=== PATIENT | male | born 1945 | race Caucasian/White ===

== ENCOUNTER 2024-06-13 12:26 | Inpatient (IN) | payer MEDICARE, SELFPAY ==
--- NOTE | ~2024-06-13 | MR_ITS ---
MR brain/brain stem wo/w con Ordering provider: Abi Hernández MD History: 78 years Male with . cva . Comparison: CT head performed yesterday. Technique: MRI brain was performed with and without contrast. 17 mL of MultiHance was given IV. FINDINGS: BONES: Normal. CRANIOCERVICAL JUNCTION: normal. PITUITARY: Normal. MAJOR INTRACRANIAL VESSELS: Normal flow void. OPTIC NERVES AND CRANIAL NERVES VII AND VIII COMPLEXES: Grossly normal. BRAIN PARENCHYMA AND CSF SPACES: Mild nonspecific T2 white matter hyperintensities are seen in a hector ateral periventricular and deep white matter distribution which are likely related to chronic ischemi c small vessel disease. Mild diffuse cortical atrophy. Old lacunar infarct in the stefany and left bas al ganglia. The brainstem and cerebellum are normal. No acute or chronic intracranial hemorrhage. No extra axial fluid collections. Diffusion restriction with acute infarct is seen in the left cerebella r hemisphere. Acute infarct also seen in the left side of the medulla. No midline shift or mass effec t. No abnormal contrast enhancement. PARANASAL SINUSES: Normal. MASTOIDS: Minimal bilateral mastoid air cells effusion. SUPERFICIAL/SURROUNDING SOFT TISSUES: Normal. 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 Infarct in the left side of the medulla oblongata.. No enhancing lesions. Dr. Simons was notified with the result of the patient at 11:12 AM on June 14, 2024 Reviewed, dictated and finalized at location A. IMPRESSION: Acute large infarct in the left cerebellar hemisphere involving the PICA territ ory. Infarct in the left side of the medulla oblongata.. No enhancing lesions. Dr. Simons was notified with the result of the patient at 11:12 AM on May
--- NOTE | ~2024-06-13 | XR_ITS ---
EXAMINATION: XR barium swallow modified DATE: 06/14/2024 14:10 INDICATION: Cerebral vascular accident. TECHNIQUE: The patient was given barium-containing material of multiple consistencies to swallow by t chon speech pathologist while I performed fluoroscopy. Fluoroscopy exposure time was 2.5 minutes. The n umber of fluoroscopy images saved to the PACS was 1. Dose-area product was 1.621 Gy-cm^2. FINDINGS: There is reduced laryngeal elevation, reduced tongue base retraction, vallecular residue, pyriform si nus residue, and laryngeal penetration. IMPRESSION: 1. Laryngeal penetration. 2. Please refer to the speech therapy report for recommendations. Reviewed, dictated and finalized at location A.
--- NOTE | ~2024-06-13 | XR_ITS ---
XR chest 1V Ordering provider: Abi Hernández MD History: 78 years Male with . Dizziness WEAKNESS . Comparison: None. FINDINGS: MEDIASTINUM: The cardiac silhouette is slightly Enlarged. congestive manpreet. LUNGS: No effusion or pneumothorax. Infiltrate in the left lower lobe with prominent markings in the right lower lobe are noted which may indicate pneumonia. Pulmonary edema is less likely although darcie ot be excluded. OTHER: No free air under the diaphragm. IMPRESSION: Bibasilar basal pneumonia. Underlying pulmonary edema is not excluded. Reviewed, dictated and finalized at location A.
--- NOTE | ~2024-06-13 | CT_ITS ---
EXAMINATION: CT cervical spine wo con DATE: 06/13/2024 13:16 INDICATION: Neck injury. Fall. TECHNIQUE: Computed tomography (CT) of the cervical spine was performed without intravenous contrast. Automated exposure control and iterative reconstruction technique were employed. The dose-length pro duct was 605.33 mGy-cm. COMPARISON: None FINDINGS: Alignment is normal. There is mild chronic anterior wedging of T1-T3 vertebral bodies. Ther e is mildly decreased disc height at C2-C3 and severely decreased disc height at C3-C4. There is inte rbody fusion at C4-C5 and C5-C6. The following disc levels are specifically discussed: C2-C3: There is moderate right and mild left uncovertebral joint osteoarthritis. There is severe bila teral facet joint osteoarthritis. There is mild bilateral neural foraminal stenosis. There is no cent ral canal stenosis. C3-C4: There is severe bilateral uncovertebral joint osteoarthritis. There is severe right and modera te left facet joint osteoarthritis. There is mild right and moderate left neural foraminal stenosis. There is mild central canal stenosis. C4-C5: There is severe right and moderate left uncovertebral joint hypertrophy. There is mild bilater al facet joint osteoarthritis. There is moderate right and mild left neural foraminal stenosis. There is mild central canal stenosis. C5-C6: There is severe bilateral uncovertebral joint hypertrophy. There is mild left facet joint oste oarthritis. There is ankylosis of right facet joint with mild hypertrophy. There is mild bilateral ne ural foraminal stenosis. There is mild central canal stenosis. C6-C7: There is mild right uncovertebral joint osteoarthritis. There is severe bilateral facet joint osteoarthritis. There is no neural foraminal stenosis. There is no central canal stenosis. C7-T1: There is mild left uncovertebral joint osteoarthritis. There is severe right and mild left fac et joint osteoarthritis. There is mild bilateral neural foraminal stenosis. There is no central canal stenosis. IMPRESSION: 1. No fracture. 2. Severe cervical spondylosis. Reviewed, dictated and finalized at location A.
--- NOTE | ~2024-06-13 | CT_ITS ---
EXAMINATION: CTA brain carotid DATE: 06/13/2024 14:39 INDICATION: Dizziness. TECHNIQUE: Computed tomographic angiography (CTA) of the head was performed with 100 mL Omnipaque-350 intravenous contrast. CTA of the neck was performed with intravenous contrast. Automated exposure co ntrol and iterative reconstruction technique were employed. The dose-length product was 1019.62 mGy-c m. Maximum intensity projection and volume rendered 3D-reconstructions were created by the technologi st on a separate workstation. COMPARISON: Head CT 06/13/2024 FINDINGS: HEAD CTA: There is an infarct in left cerebellum. There are old infarcts in the bilateral basal gangl ia. There are scattered areas of low attenuation in the cerebral white matter. There is an old infarc t in the stefany. There is no intracranial hemorrhage or abnormal mass lesion. The ventricles are normal in size. The paranasal sinuses are clear. The orbits are normal. The mastoid air cells are normal. T he vertebral arteries are codominant. There is no significant stenosis of basilar artery or the poste rior cerebral arteries. There is no significant stenosis of the intracranial internal carotid arterie s or anterior or middle cerebral arteries. Anterior communicating artery is normal. The posterior com municating arteries are normal. There is no aneurysm. NECK CTA: There is mild scarring at the lung apices. There are no pathologically enlarged lymph nodes . There is no significant stenosis of the vertebral arteries. There is plaque in the proximal interna l carotid arteries. There is 26% stenosis of the proximal right internal carotid artery relative to n ormal distal artery lumen diameter (NASCET criteria). There is 7% stenosis of the proximal left inter nal carotid artery relative to normal distal artery lumen diameter. There is severe cervical spondylo sis. IMPRESSION: 1. Infarct in left cerebellum, likely acute or subacute. 2. Old infarcts in the bilateral basal ganglia and stefany. 3. Extensive nonspecific cerebral white matter disease, which likely represents chronic small vessel ischemic disease. 4. No aneurysm or significant intracranial arterial stenosis. 5. 26% stenosis of the proximal right internal carotid artery relative to normal distal artery lumen diameter (NASCET criteria). 6. 7% stenosis of the proximal left internal carotid artery relative to normal distal artery lumen di ameter. Reviewed, dictated and finalized at location A. IMPRESSION: 1. Infarct in left cerebellum, likely acute or subacute. 2. Old infarcts in the bilateral basal ganglia and stefany. 3. Extensive nonspecific cerebral white matter disease, which likely represents chronic small vessel ischemic disease. 4. No aneurysm or significant intracranial arterial stenosis. 5. 26% stenosis of the proximal right internal carotid artery relative to ector l distal artery lumen diameter (NASCET criteria). 6. 7% stenosis of the proximal left internal carotid artery relative to normal distal artery lumen diameter.
--- NOTE | ~2024-06-13 | CT_ITS ---
CT brain wo con Ordering provider: Abi Hernández MD History: 78 years Male with . Dizziness . Comparison: None. Technique: CT of the head without contrast. FINDINGS: BRAIN PARENCHYMA AND CSF SPACES: Hypodensity seen in the left cerebellar hemisphere suggestive of acu te infarct. Further evaluation with MRI is advised. Hypodensity in the left internal capsule anterior ly seen which may be acute or chronic lacunar infarct. Mild leukoaraiosis and diffuse cortical atroph y. Mild atheromatous disease. No midline shift, mass effect or hemorrhage. The brain parenchyma and CSF spaces are otherwise normal. VISUALIZED PARANASAL SINUSES: Well aerated. MASTOIDS: Well aerated. BONES: The bones appear intact. SOFT TISSUES: Visualized nasopharynx is normal. Superficial soft tissues are normal. IMPRESSION: Hypodensity in the left cerebellar hemisphere most likely an acute infarct. MRI for confirmation is a dvised. Hypodensity in the anterior limb of the left internal capsule which may be acute or chronic infarct Brain atrophy with deep white matter ischemic changes , Physician: Abi Hernández MD Was notified with the result of patient at the time dictation 1:26 PM on May 2024. Reviewed, dictated and finalized at location A. IMPRESSION: Hypodensity in the left cerebellar hemisphere most likely an acute infarct. MRI for confirmation is advised. Hypodensity in the anterior limb of the left internal capsule which may be acut e or chronic infarct Brain atrophy with deep white matter ischemic changes , Physician: Abi Hernández MD Was notified with the result of patient at the time dictation 1:26 PM on May 2024.
[2024-06-13 12:32] VITALS: BP 168/90; PULSE 84; RESP 16; TEMP 36.3; O2SAT 95
--- NOTE | 2024-06-13 12:51 | ECG_ITS ---
Test Date: 2024-06-13 23:27:37 Measurements Intervals [place] Rate: 69 P: -18 SC: 281 QRS: 24 QRSD: 104 T: 44 QT: 414 QTc: 445 Interpretive Statements SINUS RHYTHM WITH FIRST DEGREE AV BLOCK INFERIOR MYOCARDIAL INFARCTION , PROBABLY OLD [40+ ms Q WAVE AND/OR ST/T ABNORMALITY IN II/aVF] Compared to ECG 06/13/2024 12:55:18 First degree AV block now present Atrial fibrillation no longer present Electronically Signed On 06-14-2024 15:56:42 CDT by Alfie Mcgregor M.D.
--- NOTE | 2024-06-13 12:51 | ED.DIZZY ---
HPI - Dizziness General Chief Complaint: Dizziness Stated Complaint: dizzy, possible new onset of afib Time Seen by Provider: 06/13/24 12:50 Source: patient History of Present Illness HPI Narrative: 78 years old white male came from home by ambulance with his who is telling me that patient had a fall out of his bed and found him lying down on the floor. Last time was seen by his was 20 minutes prior to that. Patient denies any pain. is telling me that he been getting weaker and weaker mainly over the last 48 hours. History of dementia, poor historian, not sure if he hit his head or not but currently denies any pain Related Data Home Medications Medication Instructions Recorded Confirmed atorvastatin 20 mg tablet mg 06/13/24 insulin glargine U-300 conc 300 unit subcut 06/13/24 unit/mL (1.5 mL) subcutaneous pen (Toujeo SoloStar U-300 Insulin) linagliptin 2.5 mg-metformin 1,000 tablet 06/13/24 mg tablet (Jentadueto) Allergies Allergy/AdvReac Type Severity Reaction Status Date / Time No Known Allergies Allergy Verified 06/13/24 12:45 Review of Systems Review of Systems: ROS unobtainable: Yes unobtainable due to medical condition Exam Narrative: General appearance: Well-developed, well-nourished Skin: Normal color Head: Normocephalic, nontraumatic Eyes: Clear conjunctiva ENT: Oropharynx normal, ears normal, nose normal Neck: Supple, nontender Chest and respiratory: Airway patent, no respiratory distress, no accessory muscle use Heart: Regular rate/rhythm Abdomen: Soft, nontender, no organomegaly, quiet bowel sounds Vascular: Normal peripheral pulses, normal capillary refill. Musculoskeletal: Normal range of motion, nontender back Neurologic: Alert and oriented to his name and the year only Course Consultations Consultation #1: dr montoya Date: 06/13/24 Time: 16:05 Vital Signs Vital signs: Vital Signs Temperature 36.3 C L 06/13/24 12:32 Pulse Rate 84 06/13/24 12:32 Respiratory Rate 16 06/13/24 12:32 Blood Pressure 168/90 H 06/13/24 12:32 Pulse Oximetry 95 06/13/24 12:32 Oxygen Delivery Room Air 06/13/24 12:32 Temperature 36.7 C 06/13/24 14:01 Pulse Rate 85 06/13/24 14:01 Respiratory Rate 16 06/13/24 14:01 Blood Pressure 145/89 H 06/13/24 14:01 Pulse Oximetry 97 06/13/24 14:01 Oxygen Delivery Room Air 06/13/24 12:32 MDM - Dizziness MDM Narrative Medical decision making narrative: Patient came with general weakness for the last 48 hours Vital signs on arrival showed blood pressure 168/90. Patient did not take his medication at home today. Physical examination showed comfortable patient, awake, oriented to his name and the name of the president only Differential diagnosis include electrolyte imbalance, dehydration, pneumonia, urinary tract infection, closed head injury Blood workup today showed WBC of 12.8 with left shift,glucose of 255, lactic acid of 2.2, total bilirubin of 1.9 Chest x-ray showed basal pneumonia bilaterally CT head without contrast showed possible infarction CTA head and neck showed acute versus subacute infarction. Dr. Montoya was consulted, requested to give Plavix 300 mg and aspirin 325 mg p.o. right now and to admit patient for MRI. Admit to hospitalist Differential Diagnosis Differential diagnosis: Likely other (As above) Medical Records Attestation: I reviewed the patient's medical records. Lab Data Attestation: I reviewed the patient's lab results. 06/13/24 13:37 06/13/24 13:37 Labs: Lab Results 06/13/24 06/13/24 Range/Units 13:37 14:19 WBC 12.3 H (4.5-10.0) K/mm3 RBC 5.03 (4.6-
[2024-06-13 13:31] VITALS: BP 160/93; PULSE 89; RESP 16; TEMP 36.8; O2SAT 96
[2024-06-13 13:50] LABS: Basophils Percent Auto 0.2 % (0.2-1.2); Hematocrit 47.6 % (42.0-52.0); Hemoglobin 15.5 g/dL (14.0-18.0); Immature Granulocyte Absolute 0.06 K/mm3 (0.00-0.031); Immature Granulocyte Percent A 0.5 % (0-0.5); Lymphocytes Absolute Auto 0.76 K/mm3 (0.9-3.2); Lymphocytes Percent Auto 6.2 % (18.3-44.2); Mean Corpuscular HGB Conc 32.6 g/dl (32-36); Mean Corpuscular Hemoglobin 30.8 pg (26-34); Mean Corpuscular Volume 94.6 fl (80-100); Mean Platelet Volume 9.8 fl (7.4-10.4); Monocytes Absolute Auto 0.3 K/mm3 (0.1-0.6); Monocytes Percent Auto 2.3 % (2.6-8.5); Neutrophils Absolute Auto 11.2 K/mm3 (1.3-6.7); Neutrophils Percent Auto 90.8 % (45.5-73.1); Platelet Count Result 243 k/mm3 (150-375); Red Blood Count 5.03 M/mm3 (4.6-6.20); Red Cell Distribution Width 12.4 % (11.5-14.5); White Blood Count 12.3 K/mm3 (4.5-10.0)
[2024-06-13 14:00] LABS: Prothrombin Time 13.5 Seconds (11.1-14.7)
[2024-06-13 14:01] VITALS: BP 145/89; PULSE 85; RESP 16; TEMP 36.7; O2SAT 97
[2024-06-13 14:01] LABS: Partial Thromboplastin Time 23.4 Seconds (22.3-36.8)
[2024-06-13 14:09] LABS: Alanine Aminotransferase 16 U/L (6-50); Albumin Level 4.4 g/dL (3.5-5.1); Alkaline Phosphatase 89 U/L (38-126); Anion Gap 18 mmol/L (4-12); Aspartate Amino Transferase 18 U/L (17-59); Bilirubin,Total 1.9 mg/dL (0.2-1.3); Blood Urea Nitrogen 14 mg/dL (9-20); Calcium 8.9 mg/dL (8.4-10.2); Carbon Dioxide 21 mmol/L (22-30); Chloride 99 mmol/L (98-107); Estimated CRCL calculation 78 ml/min; Estimated Glomerular Filt Rate > 60; Glucose 255 mg/dL (65-110); Potassium 4.1 mmol/L (3.4-5.0); Sodium 138 mmol/L (137-145)
[2024-06-13 14:20] LABS: Troponin I < 0.012 ng/mL (0.000-0.034)
[2024-06-13 14:35] LABS: Add Urine Microscopic? YES; Appearance Urine Clear (Clear); Bacteria Urine None Seen /hpf; Bilirubin Urine Negative (Negative); Blood Urine Negative (Negative); Color Urine Yellow (Yellow); Glucose Urine UA 3+ mg/dL (Negative); Ketones Urine 1+ mg/dL (Negative); Leukocyte Esterase Ur Negative LEU/UL (Negative); Nitrate Urine Negative (Negative); Non Pathogenic Casts 0-2; Protein Urine Trace mg/dL (Negative); RBC Urine 0-2 /hpf (0-2); Specific Grav Ur 1.036 (1.001-1.035); Squamous Epithelial Cell Urine None Seen /hpf (Few); WBC Urine 0-5 /hpf (0-3); pH Urine 6.5 (5.0-9.0)
[2024-06-13 15:57] LABS: Lactic Acid Reflex 2.2 mmol/L (0.7-2.0)
[2024-06-13 16:01] LABS: CRP < 0.5 mg/dL (<1.0)
[2024-06-13] MEDS: CLOPIDOGREL BISULFATE 300 MG TABLET PO (16:05)
[2024-06-13] MEDS: ASPIRIN 325 MG TABLET PO (16:05)
[2024-06-13 16:06] VITALS: BP 166/71; PULSE 68; RESP 20; O2SAT 98
[2024-06-13] MEDS: AZITHROMYCIN 500 MG/NS 250 ML 500 MG/250 ML BAG 250 MG IVPB (16:40)
[2024-06-13] MEDS: ONDANSETRON INJ 4 MG/2 ML VIAL IV PUSH (16:43)
--- NOTE | 2024-06-13 16:45 | ADMGEN ---
This patient, Robson Abbott, was admitted to [facility] Surg Room 322-01. Patient/family oriented to hospital policies and general routines including ID bracelet, bed and alarms, visiting hours, pain management, procedures, bathroom and other care routines, personal items, smoking policy, room service/diet, and visiting hours. Information on how to activate the Rapid Response Team has been discussed. Patient/Family are encouraged to report perceived risks to care and to ask questions if they do not understand what they are told or what they should do.
--- NOTE | 2024-06-13 17:25 | PM.IMHP ---
H&P: HPI History of Present Illness Date/Time: 06/13/24 17:25 Chief Complaint: Weakness and dizziness. Narrative: This is a pleasant 78-year-old male with type 2 diabetes mellitus, hyperlipidemia and gastroesophageal reflux disease who presented to the emergency department via EMS from home for evaluation of weakness and dizziness. The patient and his provides the following history. Over the last couple of weeks the patient has not seemed like himself. states he has been sleeping more than usual and has been irritable which is not typical. The last couple of days he has seemed to be weak without reports of focal deficits. His gait seems to be unsteady and he has been shuffling. He has been coughing and at times seems to be choking on food. thinks he has been mildly confused as well. This morning he fell to the ground while getting out of bed in the fall was unwitnessed. He was on the floor for about 20 minutes before his found him. He is not able to tell me why or how he fell. He denies head trauma, loss of consciousness, and injury in the fall. The patient tells me that he has been getting dizzy, especially when he opens his eyes ?it looks like everything is moving.? He feels a bit dizzy and nauseated with his eyes open. He denies diplopia, facial droop, difficulty speaking and swallowing, focal weakness, and paresthesias. He also denies chest pain, palpitations, sensations of racing heart, cough, and shortness of breath. He also denies fever, chills, and sweats. In the ED: He was afebrile on arrival with blood pressures in the 160s over 90s systolic. CTA of the head and neck showed an acute or subacute infarct in the left cerebellum as well as old infarcts and extensive nonspecific cerebral white matter disease without aneurysm or significant intracranial or carotid arterial stenosis. ED physician spoke with the on-call neurologist who indicated that the patient would not be a candidate for tPA and recommended starting the patient on aspirin and clopidogrel with admission for MRI and consult. Review of Systems Review of Systems: 12 systems were reviewed and are negative except for as per HPI. [facility] Past Medical History Medical History Gastroesophageal reflux disease Hyperlipidemia Type 2 diabetes mellitus Social History Social History (Updated 06/13/24 @ 21:06 by Ksenia Maza PA-C) Social History: Surrogate medical decision maker: Mindy Abbott, spouse. Code status: Full code. Smoking status: Never smoker Alcohol intake: never Substance use: never Do You Feel Safe in your Home?: Yes Lack of Transportation: No Lack of Food: Never True Current Housing: I Have Housing Concerned About Future Housing: No Difficulty Paying Gas/Electric Bills: No Difficulty Paying for Meds: No Currently Unemployed: No Education: Decline to Answer Difficulty w/ Childcare or Family Care: No Additional living arrangements comments: Lives with in [place]. 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 Spiritual care concerns: No Meds Home Medications and Allergies Home Medications Medication Instructions Recorded Confirmed Type atorvastatin 20 mg tablet 20 mg PO DAILY 06/13/24 06/13/24 History dapagliflozin propanediol 10 mg 10 mg PO DAILY 06/13/24 06/13/24 History tablet (Farxiga) insulin glargine U-300 conc 300 20 unit subcut DAILY 06/13/24 06/13/24 History unit/mL (1.5 mL) subcutaneous pen (Toujeo SoloStar U-300 Insulin) linagliptin 2.5 mg-metformin 1,000 1 tablet PO DIRECTED 06/13/24 06/13/24 History mg tablet (Jentadueto) Allergies Allergy/AdvReac Type Severity Reaction Status Date / Time No Known Allergies Allergy Verified 06/13/24 12:45 Vital Signs Vital Signs - 24 hr 06/13/24 12:32 06/13/24 13:31 06/13/24 14:01 Temperature 97.4 F L 98.2 F 98.0 F Pulse Rate 84 8
[2024-06-13 18:46] LABS: Reflex Lactic Acid Yes or No Add Lactic
[2024-06-13 19:19] LABS: Lactic Acid 2.1 mmol/L (0.7-2.0)
[2024-06-13 20:00] VITALS: PULSE 68; PULSE 96; RESP 20; O2SAT 98
[2024-06-13 20:38] LABS: Glucose Point of Care 210 mg/dl (65-105)
[2024-06-13 20:48] VITALS: BP 142/77; PULSE 80; RESP 18; TEMP 36.4; O2SAT 99
[2024-06-13 22:11] LABS: Hemoglobin A1C 10.9 % (<5.7)
--- NOTE | 2024-06-13 23:23 | ECG_ITS ---
Test Date: 2024-06-13 12:55:18 Measurements Intervals [place] Rate: 87 P: 0 WA: 0 QRS: 3 QRSD: 84 T: 49 QT: 369 QTc: 444 Interpretive Statements ATRIAL FIBRILLATION POSSIBLE ANTERIOR MYOCARDIAL INFARCTION , PROBABLY OLD [30 ms Q WAVE IN V3/V4, OR R < 0.2 mV IN V4] INFERIOR MYOCARDIAL INFARCTION, OLD ABNORMAL ECG No previous ECG available for comparison Electronically Signed On 06-14-2024 12:37:11 CDT by Carter Gustafson M.D.
[2024-06-14] VITALS (10 sets, daily range): BP systolic 150–185; BP diastolic 74–89; PULSE 60–73; RESP 16–18; TEMP 36.2–37.2; O2SAT 98–100; BMI 22.9
[2024-06-14 06:34] LABS: Hematocrit 47.9 % (42.0-52.0); Hemoglobin 15.7 g/dL (14.0-18.0); Mean Corpuscular HGB Conc 32.8 g/dl (32-36); Mean Corpuscular Hemoglobin 30.8 pg (26-34); Mean Corpuscular Volume 94.1 fl (80-100); Platelet Count Result 248 k/mm3 (150-375); Red Blood Count 5.09 M/mm3 (4.6-6.20); Red Cell Distribution Width 12.5 % (11.5-14.5); White Blood Count 12.6 K/mm3 (4.5-10.0)
[2024-06-14 06:41] LABS: Anion Gap 19 mmol/L (4-12); Blood Urea Nitrogen 16 mg/dL (9-20); Calcium 8.9 mg/dL (8.4-10.2); Carbon Dioxide 17 mmol/L (22-30); Chloride 101 mmol/L (98-107); Cholesterol 140 mg/dL (0-200); Estimated CRCL calculation 78 ml/min; Estimated Glomerular Filt Rate > 60; Glucose 163 mg/dL (65-110); HDL Direct 58 mg/dL; Magnesium 1.9 mg/dL (1.6-2.3); Potassium 4.1 mmol/L (3.4-5.0); Sodium 137 mmol/L (137-145); Triglycerides 78 mg/dL (<150)
[2024-06-14 06:52] LABS: LDL Cholesterol Direct 59 mg/dL
[2024-06-14 08:06] LABS: Glucose Point of Care 155 mg/dl (65-105)
[2024-06-14] MEDS: ASPIRIN 81 MG CHEWABLE TABLET PO (09:36)
[2024-06-14] MEDS: INSULIN GLARGINE (*BKC) 100 UNITS/ML 20 UNITS SUB-Q (09:36)
[2024-06-14] MEDS: EMPAGLIFLOZIN 25 MG TABLET BY MOUTH (09:36)
[2024-06-14] MEDS: CLOPIDOGREL BISULFATE 75 MG TABLET PO (09:36)
[2024-06-14] MEDS: ATORVASTATIN 20 MG TABLET PO (09:36)
--- NOTE | 2024-06-14 10:42 | P.PNIM_ITS ---
Progress Note: A&P Assessment and Plan (1) Cerebrovascular accident: Code(s): I63.9 - Cerebral infarction, unspecified Status: Acute Assessment and Plan: 06/14/24: * Reporting weakness and dizziness status post fall * Head CT showing hypodensity in the left cerebellar hemisphere most likely an acute infarct, hypodensity in the anterior limb of the left internal capsule which may be acute or chronic infarct, brain atrophy with deep white matter ischemic changes * Cervical spine CT was negative for fracture, showed severe cervical spondylosis * Head/neck CTA showed infarct in left cerebellum, likely acute or subacute, old infarcts in the bilateral basal ganglia and stefany, extensive nonspecific cerebral white matter disease representing chronic small-vessel ischemic disease, no aneurysm or significant intracranial arterial stenosis, 26% stenosis of the proximal right internal carotid artery, 7% stenosis of the proximal left internal carotid artery * EKG showing AFib with a rate of 87, QTC 444 * Brain MRI obtained and is pending * Patient was given a loading dose of Plavix and aspirin while in the ED. * Continue aspirin, atorvastatin, Plavix * Continue neuro checks * Continue fall precautions * PT and OT ordered * Case management following for possible rehab needs * Speech evaluation with Barium swallow study ordered for today * Neurology consulted (2) Pneumonia: Code(s): J18.9 - Pneumonia, unspecified organism Status: Acute Assessment and Plan: 06/14/24: * Chest x-ray showing bibasilar basal pneumonia * Likely community-acquired pneumonia * Continue azithromycin and Rocephin * Urine strep, urine Legionella, mycoplasma ordered * Will check respiratory panel (3) Elevated blood pressure reading: Code(s): R03.0 - Elevated blood-pressure reading, without diagnosis of hypertension Status: Acute Assessment and Plan: 06/14/24: * Blood pressure ranging 145/89-166/71 * Allow for permissive hypertension * Neurology consulted * Patient is not currently on any home medication for blood pressure (4) Type 2 diabetes mellitus: Code(s): E11.9 - Type 2 diabetes mellitus without complications Status: Chronic Assessment and Plan: 06/14/24: * Blood sugars ranging 155-163 * Hgb A1C 10.9 * Accu checks AC/HS * Moderate SSI ordered * Continue Lantus 20 units subQ daily * Hold Farxiga and Jentadueto * hypoglycemic protocol in place * Diabetic diet ordered (5) Hyperlipidemia: Code(s): E78.5 - Hyperlipidemia, unspecified Status: Chronic Assessment and Plan: 06/14/24: * Continue aspirin, Plavix, and atorvastatin Time Spent With Patient Time with patient: 25 - 35 minutes Subjective Date/time seen: 06/14/24 10:42 Interval history: Interval history: This is an 78-year-old male who presented to the hospital on 06/13/2024 for evaluation after a ground level fall due to weakness and dizziness. Workup in the hospital includes a head CT which showed hypodensity in the left cerebellar hemisphere most likely an acute infarct, hypodensity in the anterior limb of the left internal capsule which may be acute or chronic infarct, brain atrophy with deep white matter ischemic changes. Cervical spine CT was negative for fracture, severe cervical spondylosis. Chest x-ray showing bibasilar basal pneumonia. Head/neck CTA showed infarct in left cerebellum likely acute or subacute, old infarcts in the bilateral basal ganglia and stefany, extensive nonspecific cerebral white matter disease representing chronic small-vessel ischemic
--- NOTE | 2024-06-14 10:42 | PM.IMPN ---
Progress Note: A&P Assessment and Plan (1) Cerebrovascular accident: Code(s): I63.9 - Cerebral infarction, unspecified Status: Acute Assessment and Plan: 06/14/24: Reporting weakness and dizziness status post fall Head CT showing hypodensity in the left cerebellar hemisphere most likely an acute infarct, hypodensity in the anterior limb of the left internal capsule which may be acute or chronic infarct, brain atrophy with deep white matter ischemic changes Cervical spine CT was negative for fracture, showed severe cervical spondylosis Head/neck CTA showed infarct in left cerebellum, likely acute or subacute, old infarcts in the bilateral basal ganglia and stefany, extensive nonspecific cerebral white matter disease representing chronic small-vessel ischemic disease, no aneurysm or significant intracranial arterial stenosis, 26% stenosis of the proximal right internal carotid artery, 7% stenosis of the proximal left internal carotid artery EKG showing AFib with a rate of 87, QTC 444 Brain MRI obtained and is pending Patient was given a loading dose of Plavix and aspirin while in the ED. Continue aspirin, atorvastatin, Plavix Continue neuro checks Continue fall precautions PT and OT ordered Case management following for possible rehab needs Speech evaluation with Barium swallow study ordered for today Neurology consulted (2) Pneumonia: Code(s): J18.9 - Pneumonia, unspecified organism Status: Acute Assessment and Plan: 06/14/24: Chest x-ray showing bibasilar basal pneumonia Likely community-acquired pneumonia Continue azithromycin and Rocephin Urine strep, urine Legionella, mycoplasma ordered Will check respiratory panel (3) Elevated blood pressure reading: Code(s): R03.0 - Elevated blood-pressure reading, without diagnosis of hypertension Status: Acute Assessment and Plan: 06/14/24: Blood pressure ranging 145/89-166/71 Allow for permissive hypertension Neurology consulted Patient is not currently on any home medication for blood pressure (4) Type 2 diabetes mellitus: Code(s): E11.9 - Type 2 diabetes mellitus without complications Status: Chronic Assessment and Plan: 06/14/24: Blood sugars ranging 155-163 Hgb A1C 10.9 Accu checks AC/HS Moderate SSI ordered Continue Lantus 20 units subQ daily Hold Farxiga and Jentadueto hypoglycemic protocol in place Diabetic diet ordered (5) Hyperlipidemia: Code(s): E78.5 - Hyperlipidemia, unspecified Status: Chronic Assessment and Plan: 8/21/24: Continue aspirin, Plavix, and atorvastatin Time Spent With Patient Time with patient: 25 - 35 minutes Subjective Date/time seen: 06/14/24 10:42 Interval history: Interval history: This is an 78-year-old male who presented to the hospital on 06/13/2024 for evaluation after a ground level fall due to weakness and dizziness. Workup in the hospital includes a head CT which showed hypodensity in the left cerebellar hemisphere most likely an acute infarct, hypodensity in the anterior limb of the left internal capsule which may be acute or chronic infarct, brain atrophy with deep white matter ischemic changes. Cervical spine CT was negative for fracture, severe cervical spondylosis. Chest x-ray showing bibasilar basal pneumonia. Head/neck CTA showed infarct in left cerebellum likely acute or subacute, old infarcts in the bilateral basal ganglia and stefany, extensive nonspecific cerebral white matter disease representing chronic small-vessel ischemic disease, no aneurysm or significant intracranial arterial stenosis, 26% stenosis of the proximal right internal carotid artery, 7% stenosis of the proximal left internal carotid artery. Initial labs shown a white blood cell count of 12.3, bicarb 21, hemoglobin A1c 10.9, lactic acid 2.2> 2.1, total bili 1.9, troponin negative, lipid panel negative, TSH 1.59. UA was obtained and showed a urine specific
[2024-06-14 11:41] LABS: Glucose Point of Care 231 mg/dl (65-105)
--- NOTE | 2024-06-14 12:20 | WPDNEURCNPN ---
Assessment and Plan Assessment and plan (1) Elevated blood pressure reading: Code(s): R03.0 - Elevated blood-pressure reading, without diagnosis of hypertension Status: Acute (2) Cerebrovascular accident: Code(s): I63.9 - Cerebral infarction, unspecified Status: Acute (3) Type 2 diabetes mellitus: Code(s): E11.9 - Type 2 diabetes mellitus without complications Status: Chronic Plan 1. Acute infarct in left cerebellar hemisphere involving the PICA territory in addition to the infarct and left side of the medulla oblongata also. Head and neck CTA documented as mentioned above 2. Will need the echocardiogram with bubble study and then rehab evaluation in the meantime continuation of the aspirin and Plavix. Consult date: 06/14/24 HPI: Robson Abbott is a 78 year old male admitted to the hospital through the emergency room where he was brought from home by ambulance and with the information that he had fallen out of his bed and was found lying down on the floor with the last time being seen by his was about 20minutes prior to this incident. Patient was not complaining of any specific pain patient's complained that he was getting weaker and weaker and also he does have ongoing history of dementia. His medications included atorvastatin 20mg daily linagliptin 2.5mg with metformin 1000mg tablet daily and insulin injections subcu on initial evaluation his blood pressure 168/90 routine vital signs were normal chest x-ray revealed basal pneumonia, CTA was abnormal with the infarction CBC was normal BMP with blood sugar of 255 and UA negative cervical spine CT scan with severe cervical spondylosis, initial CT scan of the head with hypodensity in the left cerebellar hemisphere and in the anterior limb of the left internal capsule with brain atrophy, head neck CTA with infarct in left cerebellum with old infarct in bilateral basal ganglia and stefany and extensive nonspecific white matter changes but no aneurysm or significant intracranial arterial stenosis, 26% stenosis of proximal right internal carotid artery, and brain MRI confirmed the acute large infarct in left cerebellar hemisphere in the distribution of the PICA involving the infarct in left side of the medulla oblongata also be PMFSH Past Medical History Medical History Gastroesophageal reflux disease Hyperlipidemia Type 2 diabetes mellitus Social History Social History Social History: Surrogate medical decision maker: Mindy Hickey, spouse. Code status: Full code. Smoking status: Never smoker Alcohol intake: never Substance use: never Do You Feel Safe in your Home?: Yes Lack of Transportation: No Lack of Food: Never True Current Housing: I Have Housing Concerned About Future Housing: No Difficulty Paying Gas/Electric Bills: No Difficulty Paying for Meds: No Currently Unemployed: No Education: Decline to Answer Difficulty w/ Childcare or Family Care: No Additional living arrangements comments: Lives with in [place]. 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 Spiritual care concerns: No Meds Home Medications and Allergies Home Medications Medication Instructions Recorded Confirmed Type atorvastatin 20 mg tablet 20 mg PO DAILY 06/13/24 06/13/24 History dapagliflozin propanediol 10 mg 10 mg PO DAILY 06/13/24 06/13/24 History tablet (Farxiga) insulin glargine U-300 conc 300 20 unit subcut DAILY 06/13/24 06/13/24 History unit/mL (1.5 mL) subcutaneous pen (Toujeo SoloStar U-300 Insulin) linagliptin 2.5 mg-metformin 1,000 1 tablet PO DIRECTED 06/13/24 06/13/24 History mg tablet (Jentadueto) Allergies Allergy/AdvReac Type Severity Reaction Status Date / Time No Known Allergies Allergy Verified 06/13/24 12:45 Vital Signs Vital Signs - 24 hr 05/26
[2024-06-14] MEDS: INSULIN ASPART (*BKC) 100 UNITS/ML SUB-Q (13:21)
[2024-06-14] MEDS: AZITHROMYCIN 500 MG/NS 250 ML 500 MG/250 ML BAG 250 MG IVPB (13:23)
[2024-06-14 14:03] LABS: Influenza A QL RT-PCR Negative (Negative); Influenza B QL RT-PCR Negative (Negative); RSV RNA, RT-PCR Negative (Negative); SARS-CoV-2 RNA PCR Negative (Negative)
--- NOTE | 2024-06-14 14:32 | PCSTNOTE ---
Please refer to the Modified Barium Swallow Evaluation in the EMR. Patient was seen for a MBS at the request of his physician. He was admitted 06/13 with CVA, pneumonia, elevated blood pressure, and others. Chest x-ray 06/13 revealed: Bibasilar basal pneumonia. Underlying pulmonary edema is not excluded. Patient denied difficulty swallowing at this time. Patient was viewed in the lateral position to the level of C5/C6. He prevented penetration on uncontrolled thin liquid contrast medium per cup however given uncontrolled thin liquid per straw, he exhibited consistent trace to mild penetration into the upper laryngeal vestibule. He tolerated mildly thick and moderately thick uncontrolled liquids. Patient also handled pudding mixed with semi-solid contrast medium, fruit cocktail pieces, and milo cracker pieces both coated with the semi-solid mixture. Impairments: Oral Stage: None. Pharyngeal Stage: Reduced base of tongue retraction and reduced laryngeal elevation, both contributing to trace to mild laryngeal penetration during swallows and significant vallecular and pyriform sinus residue after swallows. Cricopharyngeal Stage: None. Results suggest patient may have Regular Diet, Level 7, and Mildly Thick Liquids, Level 2. Recommend upright positioning, small bites and sips, chew thoroughly, clear throat every 3-4 sips/bites. Continue Speech Therapy services 2-3 times weekly to address swallowing strengthening exercises and to instruct and reinforce safe swallowing strategies in order to return to regular liquids. Flori, Hospitalist, and RADHIKA Andre, notified of results and recommendations.
--- NOTE | 2024-06-14 15:54 | PCPTNOTE ---
On 06/14/24, the student, [Milena De La Rosa], provided care and completed [facility] documentation on this patient. I have reviewed the student's documentation and agree with the findings.
[2024-06-14 16:55] LABS: Glucose Point of Care 188 mg/dl (65-105)
[2024-06-14 20:37] LABS: Glucose Point of Care 151 mg/dl (65-105)
[2024-06-15] VITALS: PULSE 73
[2024-06-15 04:00] VITALS: PULSE 91
[2024-06-15 06:00] VITALS: BP 138/70; PULSE 81; RESP 18; TEMP 36.2; O2SAT 100
[2024-06-15 07:07] LABS: Basophils Absolute Auto 0.1 K/mm3 (0.0-0.1); Basophils Percent Auto 0.5 % (0.2-1.2); Eosinophils Absolute Auto 0.1 K/mm3 (0-0.3); Eosinophils Percent Auto 0.6 % (0-4.4); Hematocrit 48.7 % (42.0-52.0); Hemoglobin 15.8 g/dL (14.0-18.0); Immature Granulocyte Absolute 0.03 K/mm3 (0.00-0.031); Immature Granulocyte Percent A 0.3 % (0-0.5); Lymphocytes Absolute Auto 1.83 K/mm3 (0.9-3.2); Lymphocytes Percent Auto 17.4 % (18.3-44.2); Mean Corpuscular HGB Conc 32.4 g/dl (32-36); Mean Corpuscular Hemoglobin 30.3 pg (26-34); Mean Corpuscular Volume 93.5 fl (80-100); Mean Platelet Volume 10.1 fl (7.4-10.4); Monocytes Absolute Auto 0.9 K/mm3 (0.1-0.6); Monocytes Percent Auto 8.7 % (2.6-8.5); Neutrophils Absolute Auto 7.6 K/mm3 (1.3-6.7); Neutrophils Percent Auto 72.5 % (45.5-73.1); Platelet Count Result 277 k/mm3 (150-375); Red Blood Count 5.21 M/mm3 (4.6-6.20); Red Cell Distribution Width 12.4 % (11.5-14.5); White Blood Count 10.5 K/mm3 (4.5-10.0)
[2024-06-15 07:13] LABS: Anion Gap 12 mmol/L (4-12); Blood Urea Nitrogen 17 mg/dL (9-20); Carbon Dioxide 25 mmol/L (22-30); Chloride 98 mmol/L (98-107); Sodium 135 mmol/L (137-145)
[2024-06-15 07:14] LABS: Alanine Aminotransferase 13 U/L (6-50); Albumin Level 4.4 g/dL (3.5-5.1); Alkaline Phosphatase 84 U/L (38-126); Aspartate Amino Transferase 22 U/L (17-59); Calcium 9.3 mg/dL (8.4-10.2); Estimated CRCL calculation 68 ml/min; Estimated Glomerular Filt Rate > 60; Glucose 135 mg/dL (65-110)
[2024-06-15 08:01] VITALS: PULSE 88
[2024-06-15] MEDS: CLOPIDOGREL BISULFATE 75 MG TABLET PO (08:51)
[2024-06-15] MEDS: EMPAGLIFLOZIN 25 MG TABLET BY MOUTH (08:51)
[2024-06-15] MEDS: ASPIRIN 81 MG CHEWABLE TABLET PO (08:51)
[2024-06-15] MEDS: ATORVASTATIN 20 MG TABLET PO (08:51)
[2024-06-15] MEDS: INSULIN GLARGINE (*BKC) 100 UNITS/ML 20 UNITS SUB-Q (08:52)
--- NOTE | 2024-06-15 09:12 | P.PNIM_ITS ---
Progress Note: A&P Assessment and Plan (1) Cerebrovascular accident: Code(s): I63.9 - Cerebral infarction, unspecified Status: Acute Assessment and Plan: 06/14/24: * Reporting weakness and dizziness status post fall * Head CT showing hypodensity in the left cerebellar hemisphere most likely an acute infarct, hypodensity in the anterior limb of the left internal capsule which may be acute or chronic infarct, brain atrophy with deep white matter ischemic changes * Cervical spine CT was negative for fracture, showed severe cervical spondylosis * Head/neck CTA showed infarct in left cerebellum, likely acute or subacute, old infarcts in the bilateral basal ganglia and stefany, extensive nonspecific cerebral white matter disease representing chronic small-vessel ischemic disease, no aneurysm or significant intracranial arterial stenosis, 26% stenosis of the proximal right internal carotid artery, 7% stenosis of the proximal left internal carotid artery * EKG showing AFib with a rate of 87, QTC 444 * Brain MRI obtained and is pending * Patient was given a loading dose of Plavix and aspirin while in the ED. * Continue aspirin, atorvastatin, Plavix * Continue neuro checks * Continue fall precautions * PT and OT ordered * Case management following for possible rehab needs * Speech evaluation with Barium swallow study ordered for today * Neurology consulted 06/15/24: * Continue PT and OT * Case management following for outpatient rehab needs * Speech to follow up again today * Brain MRI shown acute large infarct in the left cerebellar hemisphere involving the PICA territory, infarct iin the left side of the medulla oblongata. * Continue with current treatment plan * Will start meclizine 12.5mg QID for dizziness (2) Pneumonia: Code(s): J18.9 - Pneumonia, unspecified organism Status: Acute Assessment and Plan: 06/14/24: * Chest x-ray showing bibasilar basal pneumonia * Likely community-acquired pneumonia * Continue azithromycin and Rocephin * Urine strep, urine Legionella, mycoplasma ordered * Will check respiratory panel 06/15/24: * Will change to Augmentin and Azithromycin today * Labs still pending * Respiratory panel negative (3) Elevated blood pressure reading: Code(s): R03.0 - Elevated blood-pressure reading, without diagnosis of hypertension Status: Acute Assessment and Plan: 06/14/24: * Blood pressure ranging 145/89-166/71 * Allow for permissive hypertension * Neurology consulted * Patient is not currently on any home medication for blood pressure 06/15/24: * Blood pressure ranging 138/70-185/89 * Start amlodipine 5 mg daily (4) Type 2 diabetes mellitus: Code(s): E11.9 - Type 2 diabetes mellitus without complications Status: Chronic Assessment and Plan: 06/14/24: * Blood sugars ranging 155-163 * Hgb A1C 10.9 * Accu checks AC/HS * Moderate SSI ordered * Continue Lantus 20 units subQ daily * Hold Farxiga and Jentadueto * hypoglycemic protocol in place * Diabetic diet ordered 06/15/24: * No change to current treatment plan (5) Hyperlipidemia: Code(s): E78.5 - Hyperlipidemia, unspecified Status: Chronic Assessment and Plan: 06/14/24: * Continue aspirin, Plavix, and atorvastatin 06/15/24: * No change to current treatment plan Subjective Date/time seen: 06/15/24 09:12 Interval history: Interval history: This is an 78-year-old male who presented to the hospital on 06/13/2024 for evaluation after a ground level fa
--- NOTE | 2024-06-15 09:12 | PM.IMPN ---
Progress Note: A&P Assessment and Plan (1) Cerebrovascular accident: Code(s): I63.9 - Cerebral infarction, unspecified Status: Acute Assessment and Plan: 06/14/24: Reporting weakness and dizziness status post fall Head CT showing hypodensity in the left cerebellar hemisphere most likely an acute infarct, hypodensity in the anterior limb of the left internal capsule which may be acute or chronic infarct, brain atrophy with deep white matter ischemic changes Cervical spine CT was negative for fracture, showed severe cervical spondylosis Head/neck CTA showed infarct in left cerebellum, likely acute or subacute, old infarcts in the bilateral basal ganglia and stefany, extensive nonspecific cerebral white matter disease representing chronic small-vessel ischemic disease, no aneurysm or significant intracranial arterial stenosis, 26% stenosis of the proximal right internal carotid artery, 7% stenosis of the proximal left internal carotid artery EKG showing AFib with a rate of 87, QTC 444 Brain MRI obtained and is pending Patient was given a loading dose of Plavix and aspirin while in the ED. Continue aspirin, atorvastatin, Plavix Continue neuro checks Continue fall precautions PT and OT ordered Case management following for possible rehab needs Speech evaluation with Barium swallow study ordered for today Neurology consulted 06/15/24: Continue PT and OT Case management following for outpatient rehab needs Speech to follow up again today Brain MRI shown acute large infarct in the left cerebellar hemisphere involving the PICA territory, infarct iin the left side of the medulla oblongata. Continue with current treatment plan Will start meclizine 12.5mg QID for dizziness (2) Pneumonia: Code(s): J18.9 - Pneumonia, unspecified organism Status: Acute Assessment and Plan: 06/14/24: Chest x-ray showing bibasilar basal pneumonia Likely community-acquired pneumonia Continue azithromycin and Rocephin Urine strep, urine Legionella, mycoplasma ordered Will check respiratory panel 06/15/24: Will change to Augmentin and Azithromycin today Labs still pending Respiratory panel negative (3) Elevated blood pressure reading: Code(s): R03.0 - Elevated blood-pressure reading, without diagnosis of hypertension Status: Acute Assessment and Plan: 06/14/24: Blood pressure ranging 145/89-166/71 Allow for permissive hypertension Neurology consulted Patient is not currently on any home medication for blood pressure 06/15/24: Blood pressure ranging 138/70-185/89 Start amlodipine 5 mg daily (4) Type 2 diabetes mellitus: Code(s): E11.9 - Type 2 diabetes mellitus without complications Status: Chronic Assessment and Plan: 06/14/24: Blood sugars ranging 155-163 Hgb A1C 10.9 Accu checks AC/HS Moderate SSI ordered Continue Lantus 20 units subQ daily Hold Farxiga and Jentadueto hypoglycemic protocol in place Diabetic diet ordered 06/15/24: No change to current treatment plan (5) Hyperlipidemia: Code(s): E78.5 - Hyperlipidemia, unspecified Status: Chronic Assessment and Plan: 06/14/24: Continue aspirin, Plavix, and atorvastatin 06/15/24: No change to current treatment plan Subjective Date/time seen: 06/15/24 09:12 Interval history: Interval history: This is an 78-year-old male who presented to the hospital on 06/13/2024 for evaluation after a ground level fall due to weakness and dizziness. Workup in the hospital includes a head CT which showed hypodensity in the left cerebellar hemisphere most likely an acute infarct, hypodensity in the anterior limb of the left internal capsule which may be acute or chronic infarct, brain atrophy with deep white matter ischemic changes. Cervical spine CT was negative for fracture, severe cervical spondylosis. Chest x-ray showing bibasilar basal pneumonia. Head/neck CTA showed infarct in left c
[2024-06-15] MEDS: MECLIZINE HCL 12.5 MG TABLET PO ×3 (13:14→20:22)
[2024-06-15 16:45] LABS: Glucose Point of Care 120 mg/dl (65-105)
--- NOTE | 2024-06-15 17:32 | WPDNEUROPN ---
Progress Note: A&P Assessment and Plan (1) Acute ischemic VBA brainstem stroke: Code(s): I63.219 - Cerebral infarction due to unspecified occlusion or stenosis of unspecified vertebral artery; I63.22 - Cerebral infarction due to unspecified occlusion or stenosis of basilar artery Status: Acute (2) Type 2 diabetes mellitus: Code(s): E11.9 - Type 2 diabetes mellitus without complications Status: Chronic Plan Strokes such as this are known to occur in patients with diabetes due to the involvement of small and medium size vessels. The control of diabetes blood pressure and risk factors and lipid profile and use of antiplatelets and statins are recommended. Patient appears to be stable at this time. I would suggest to increase the dose of atorvastatin to 40 mg a day and continue with aspirin and Plavix. I reviewed the MRI and CT angiogram of the head and neck and noted the patient does have extensive white matter changes in addition to the new infarct in the left cerebellar and brainstem area which correlates with the left posterior inferior cerebellar artery. Subjective Date/time seen: 06/15/24 17:32 Interval history: The patient 78 years old with history of diabetes mellitus and a new onset left posterior communicating artery infarct presented with the dizziness and weakness. Overall he is feeling better today. He denies any headache. No difficulty speech or swallowing. No diplopia. Patient's was present the time of the evaluation. The results of the CT scan of brain and CT angiogram of the head and neck and MRI of the brain were reviewed. Previous hospitalist neurological notes were reviewed. Patient is in physical therapy. He denies any additional symptoms. Review of Systems Review of Systems: All systems reviewed & are unremarkable except as noted in HPI and below Exam Narrative: Fully conscious alert oriented to self time place and person. No aphasia or dysarthria. Head and neck no evidence of external trauma no nuchal rigidity heart sounds were normal. No carotid bruit. Cranial nerves pupils were equal reacting. Visual russo by confrontation are normal. There is no facial asymmetry. Facial sensation intact. Other cranial normal limits. Motor system normal power in both upper and lower limbs coordination finger-nose appears normal. Rapid alternating movement in both upper and lower limbs did not show any significant asymmetry. No involuntary movements seen. Gait was not tested at this time. Objective Data Vital Signs Vital Signs: Vital Signs - 24 hr 06/14/24 20:43 06/14/24 20:00 06/14/24 20:00 Temperature 98.9 F Pulse Rate 73 69 Respiratory Rate 16 Blood Pressure 185/89 H Pulse Oximetry 100 Oxygen Delivery Room Air 06/15/24 00:00 06/15/24 04:00 06/15/24 06:00 Temperature 97.1 F L Pulse Rate 73 91 81 Respiratory Rate 18 Blood Pressure 138/70 Pulse Oximetry 100 Oxygen Delivery 06/15/24 08:01 06/15/24 08:00 Temperature Pulse Rate 88 Respiratory Rate Blood Pressure Pulse Oximetry Oxygen Delivery Room Air Intake/Output Intake/Output: Intake & Output 06/12/24 06/13/24 06/14/24 06/15/24 23:59 23:59 23:59 23:59 Intake Total 300 556 460 Output Total 150 650 Balance 300 406 -190 Meds/Results Medications: Active Medications Generic Name Dose Route Start Last Admin Trade Name Freq PRN Reason Stop Dose Admin Acetaminophen 650 mg 06/13/24 15:50 Acetaminophen 325 Mg Tablet PO Q4H PRN Mild Pain (1-3) or Fever Amlodipine Besylate 5 mg 06/16/24 09:00 Amlodipine Besylate 5 Mg Tablet PO DAILY [facility] Amoxicillin/Clavulanate Potassium 1 tablet 06/15/24 21:00 Amoxicillin/Clavulanate K 875-125 Mg Tab PO Q12HR [facility] Aspirin 81 mg 06/14/24 08:00 06/15/24 08:51 Aspirin 81 Mg Chewable Tablet PO 81 mg DAILY@0800 [facility] Administration Atorvastatin Calcium 20 mg 06/14/24 09:00
[2024-06-15 19:40] LABS: Cholesterol 140 mg/dL (0-200); HDL Direct 60 mg/dL; Triglycerides 99 mg/dL (<150)
[2024-06-15 19:52] LABS: LDL Cholesterol Direct 53 mg/dL
[2024-06-15 20:00] VITALS: PULSE 92
[2024-06-15 20:22] LABS: Glucose Point of Care 168 mg/dl (65-105)
[2024-06-15] MEDS: AMOXICILLIN/CLAVULANATE K 875-125 MG TAB 1 TABLET PO (20:22)
[2024-06-15 20:25] VITALS: BP 128/61; PULSE 89; RESP 20; TEMP 36.4; O2SAT 99
[2024-06-15 20:43] LABS: Vitamin D 25 Hydroxy 27.1 ng/mL
[2024-06-15 20:46] LABS: Folic Acid 11.9 ng/mL (2.76->20)
[2024-06-16] VITALS: PULSE 95
[2024-06-16 04:00] VITALS: PULSE 96
[2024-06-16 05:20] VITALS: BP 138/70; PULSE 94; RESP 20; TEMP 36.9; O2SAT 98
[2024-06-16 07:09] LABS: Basophils Percent Auto 0.4 % (0.2-1.2); Eosinophils Absolute Auto 0.1 K/mm3 (0-0.3); Eosinophils Percent Auto 0.8 % (0-4.4); Hemoglobin 17.3 g/dL (14.0-18.0); Immature Granulocyte Absolute 0.04 K/mm3 (0.00-0.031); Immature Granulocyte Percent A 0.4 % (0-0.5); Lymphocytes Absolute Auto 2.07 K/mm3 (0.9-3.2); Lymphocytes Percent Auto 22.7 % (18.3-44.2); Mean Corpuscular HGB Conc 33.3 g/dl (32-36); Mean Corpuscular Hemoglobin 30.9 pg (26-34); Mean Corpuscular Volume 92.9 fl (80-100); Mean Platelet Volume 9.8 fl (7.4-10.4); Monocytes Absolute Auto 0.9 K/mm3 (0.1-0.6); Monocytes Percent Auto 10.3 % (2.6-8.5); Neutrophils Percent Auto 65.4 % (45.5-73.1); Platelet Count Result 289 k/mm3 (150-375); Red Cell Distribution Width 12.5 % (11.5-14.5); White Blood Count 9.1 K/mm3 (4.5-10.0)
[2024-06-16 07:15] LABS: Alanine Aminotransferase 14 U/L (6-50); Albumin Level 4.7 g/dL (3.5-5.1); Alkaline Phosphatase 88 U/L (38-126); Anion Gap 18 mmol/L (4-12); Aspartate Amino Transferase 25 U/L (17-59); Bilirubin,Total 2.2 mg/dL (0.2-1.3); Blood Urea Nitrogen 19 mg/dL (9-20); Calcium 9.1 mg/dL (8.4-10.2); Carbon Dioxide 22 mmol/L (22-30); Chloride 97 mmol/L (98-107); Estimated CRCL calculation 61 ml/min; Estimated Glomerular Filt Rate > 60; Glucose 96 mg/dL (65-110); Potassium 4.2 mmol/L (3.4-5.0); Sodium 137 mmol/L (137-145)
[2024-06-16] MEDS: AZITHROMYCIN 250 MG TABLET 500 MG PO (08:50)
[2024-06-16] MEDS: AMOXICILLIN/CLAVULANATE K 875-125 MG TAB 1 TABLET PO ×2 (08:50→20:50)
[2024-06-16] MEDS: amLODIPine BESYLATE 5 MG TABLET PO (08:50)
[2024-06-16] MEDS: ASPIRIN 81 MG CHEWABLE TABLET PO (08:50)
[2024-06-16] MEDS: CLOPIDOGREL BISULFATE 75 MG TABLET PO (08:50)
[2024-06-16] MEDS: MECLIZINE HCL 12.5 MG TABLET PO ×4 (08:50→20:50)
[2024-06-16] MEDS: EMPAGLIFLOZIN 25 MG TABLET BY MOUTH (08:50)
[2024-06-16] MEDS: ATORVASTATIN 40 MG TABLET PO (08:50)
[2024-06-16] MEDS: INSULIN GLARGINE (*BKC) 100 UNITS/ML 20 UNITS SUB-Q (08:53)
[2024-06-16 11:00] VITALS: BMI 11.0
[2024-06-16 11:59] LABS: Glucose Point of Care 144 mg/dl (65-105)
[2024-06-16 15:06] VITALS: BP 124/62; PULSE 100; RESP 16; TEMP 36.8; O2SAT 98
--- NOTE | 2024-06-16 15:49 | P.PNIM_ITS ---
Progress Note: A&P Assessment and Plan (1) Cerebrovascular accident: Code(s): I63.9 - Cerebral infarction, unspecified Status: Acute Assessment and Plan: 06/14/24: * Reporting weakness and dizziness status post fall * Head CT showing hypodensity in the left cerebellar hemisphere most likely an acute infarct, hypodensity in the anterior limb of the left internal capsule which may be acute or chronic infarct, brain atrophy with deep white matter ischemic changes * Cervical spine CT was negative for fracture, showed severe cervical spondylosis * Head/neck CTA showed infarct in left cerebellum, likely acute or subacute, old infarcts in the bilateral basal ganglia and stefany, extensive nonspecific cerebral white matter disease representing chronic small-vessel ischemic disease, no aneurysm or significant intracranial arterial stenosis, 26% stenosis of the proximal right internal carotid artery, 7% stenosis of the proximal left internal carotid artery * EKG showing AFib with a rate of 87, QTC 444 * Brain MRI obtained and is pending * Patient was given a loading dose of Plavix and aspirin while in the ED. * Continue aspirin, atorvastatin, Plavix * Continue neuro checks * Continue fall precautions * PT and OT ordered * Case management following for possible rehab needs * Speech evaluation with Barium swallow study ordered for today * Neurology consulted 06/15/24: * Continue PT and OT * Case management following for outpatient rehab needs * Speech to follow up again today * Brain MRI shown acute large infarct in the left cerebellar hemisphere involving the PICA territory, infarct iin the left side of the medulla oblongata. * Continue with current treatment plan * Will start meclizine 12.5mg QID for dizziness 06/16/24: * No change to treatment plan (2) Pneumonia: Code(s): J18.9 - Pneumonia, unspecified organism Status: Acute Assessment and Plan: 06/14/24: * Chest x-ray showing bibasilar basal pneumonia * Likely community-acquired pneumonia * Continue azithromycin and Rocephin * Urine strep, urine Legionella, mycoplasma ordered * Will check respiratory panel 06/15/24: * Will change to Augmentin and Azithromycin today * Labs still pending * Respiratory panel negative 06/16/24: * No change to current treatment plan (3) Elevated blood pressure reading: Code(s): R03.0 - Elevated blood-pressure reading, without diagnosis of hypertension Status: Acute Assessment and Plan: 06/14/24: * Blood pressure ranging 145/89-166/71 * Allow for permissive hypertension * Neurology consulted * Patient is not currently on any home medication for blood pressure 06/15/24: * Blood pressure ranging 138/70-185/89 * Start amlodipine 5 mg daily 06/16/24: * Blood pressures ranging 124/62 to 138/70 * Continue amlodipine (4) Type 2 diabetes mellitus: Code(s): E11.9 - Type 2 diabetes mellitus without complications Status: Chronic Assessment and Plan: 06/14/24: * Blood sugars ranging 155-163 * Hgb A1C 10.9 * Accu checks AC/HS * Moderate SSI ordered * Continue Lantus 20 units subQ daily * Hold Farxiga and Jentadueto * hypoglycemic protocol in place * Diabetic diet ordered 06/15/24: * No change to current treatment plan (5) Hyperlipidemia: Code(s): E78.5 - Hyperlipidemia, unspecified Status: Chronic Assessment and Plan: 06/14/24: * Continue aspirin, Plavix, and atorvastatin 06/15/24: * No change to current treatment plan Time Spent With Nathalie
--- NOTE | 2024-06-16 15:49 | PM.IMPN ---
Progress Note: A&P Assessment and Plan (1) Cerebrovascular accident: Code(s): I63.9 - Cerebral infarction, unspecified Status: Acute Assessment and Plan: 06/14/24: Reporting weakness and dizziness status post fall Head CT showing hypodensity in the left cerebellar hemisphere most likely an acute infarct, hypodensity in the anterior limb of the left internal capsule which may be acute or chronic infarct, brain atrophy with deep white matter ischemic changes Cervical spine CT was negative for fracture, showed severe cervical spondylosis Head/neck CTA showed infarct in left cerebellum, likely acute or subacute, old infarcts in the bilateral basal ganglia and stefany, extensive nonspecific cerebral white matter disease representing chronic small-vessel ischemic disease, no aneurysm or significant intracranial arterial stenosis, 26% stenosis of the proximal right internal carotid artery, 7% stenosis of the proximal left internal carotid artery EKG showing AFib with a rate of 87, QTC 444 Brain MRI obtained and is pending Patient was given a loading dose of Plavix and aspirin while in the ED. Continue aspirin, atorvastatin, Plavix Continue neuro checks Continue fall precautions PT and OT ordered Case management following for possible rehab needs Speech evaluation with Barium swallow study ordered for today Neurology consulted 06/15/24: Continue PT and OT Case management following for outpatient rehab needs Speech to follow up again today Brain MRI shown acute large infarct in the left cerebellar hemisphere involving the PICA territory, infarct iin the left side of the medulla oblongata. Continue with current treatment plan Will start meclizine 12.5mg QID for dizziness 06/16/24: No change to treatment plan (2) Pneumonia: Code(s): J18.9 - Pneumonia, unspecified organism Status: Acute Assessment and Plan: 06/14/24: Chest x-ray showing bibasilar basal pneumonia Likely community-acquired pneumonia Continue azithromycin and Rocephin Urine strep, urine Legionella, mycoplasma ordered Will check respiratory panel 06/15/24: Will change to Augmentin and Azithromycin today Labs still pending Respiratory panel negative 06/16/24: No change to current treatment plan (3) Elevated blood pressure reading: Code(s): R03.0 - Elevated blood-pressure reading, without diagnosis of hypertension Status: Acute Assessment and Plan: 06/14/24: Blood pressure ranging 145/89-166/71 Allow for permissive hypertension Neurology consulted Patient is not currently on any home medication for blood pressure 06/15/24: Blood pressure ranging 138/70-185/89 Start amlodipine 5 mg daily 06/16/24: Blood pressures ranging 124/62 to 138/70 Continue amlodipine (4) Type 2 diabetes mellitus: Code(s): E11.9 - Type 2 diabetes mellitus without complications Status: Chronic Assessment and Plan: 06/14/24: Blood sugars ranging 155-163 Hgb A1C 10.9 Accu checks AC/HS Moderate SSI ordered Continue Lantus 20 units subQ daily Hold Farxiga and Jentadueto hypoglycemic protocol in place Diabetic diet ordered 06/15/24: No change to current treatment plan (5) Hyperlipidemia: Code(s): E78.5 - Hyperlipidemia, unspecified Status: Chronic Assessment and Plan: 06/14/24: Continue aspirin, Plavix, and atorvastatin 06/15/24: No change to current treatment plan Time Spent With Patient Time with patient: 25 - 35 minutes Subjective Date/time seen: 06/16/24 15:49 Interval history: Interval history: This is an 78-year-old male who presented to the hospital on 06/13/2024 for evaluation after a ground level fall due to weakness and dizziness. Workup in the hospital includes a head CT which showed hypodensity in the left cerebellar hemisphere most likely an acute infarct, hypodensity in the anterior limb of the left internal capsule which may be acute or chroni
[2024-06-16 17:02] LABS: Glucose Point of Care 197 mg/dl (65-105)
[2024-06-16] MEDS: chlorproMAZINE HCL 25 MG TABLET PO (18:11)
[2024-06-16 20:00] VITALS: PULSE 100; RESP 16; O2SAT 98
[2024-06-16] MEDS: INSULIN ASPART (*BKC) 100 UNITS/ML SUB-Q (20:55)
[2024-06-16 21:07] LABS: Glucose Point of Care 221 mg/dl (65-105)
[2024-06-16 21:54] VITALS: BP 145/86; PULSE 118; RESP 16; TEMP 36.2; O2SAT 95
[2024-06-17] VITALS: PULSE 109
[2024-06-17 04:00] VITALS: PULSE 93
[2024-06-17 06:00] VITALS: BP 140/93; PULSE 90; RESP 16; TEMP 36.3; O2SAT 93
[2024-06-17 07:12] LABS: Basophils Absolute Auto 0.1 K/mm3 (0.0-0.1); Basophils Percent Auto 0.7 % (0.2-1.2); Eosinophils Absolute Auto 0.1 K/mm3 (0-0.3); Hematocrit 48.2 % (42.0-52.0); Hemoglobin 15.8 g/dL (14.0-18.0); Immature Granulocyte Absolute 0.04 K/mm3 (0.00-0.031); Immature Granulocyte Percent A 0.5 % (0-0.5); Lymphocytes Absolute Auto 2.13 K/mm3 (0.9-3.2); Lymphocytes Percent Auto 27.8 % (18.3-44.2); Mean Corpuscular HGB Conc 32.8 g/dl (32-36); Mean Corpuscular Volume 91.6 fl (80-100); Mean Platelet Volume 9.7 fl (7.4-10.4); Monocytes Absolute Auto 0.9 K/mm3 (0.1-0.6); Monocytes Percent Auto 11.9 % (2.6-8.5); Neutrophils Absolute Auto 4.5 K/mm3 (1.3-6.7); Neutrophils Percent Auto 58.1 % (45.5-73.1); Platelet Count Result 283 k/mm3 (150-375); Red Blood Count 5.26 M/mm3 (4.6-6.20); Red Cell Distribution Width 12.5 % (11.5-14.5); White Blood Count 7.7 K/mm3 (4.5-10.0)
[2024-06-17 07:19] LABS: Alanine Aminotransferase 12 U/L (6-50); Alkaline Phosphatase 83 U/L (38-126); Anion Gap 10 mmol/L (4-12); Aspartate Amino Transferase 18 U/L (17-59); Bilirubin,Total 1.8 mg/dL (0.2-1.3); Blood Urea Nitrogen 18 mg/dL (9-20); Carbon Dioxide 25 mmol/L (22-30); Chloride 101 mmol/L (98-107); Estimated CRCL calculation 57 ml/min; Estimated Glomerular Filt Rate > 60; Glucose 138 mg/dL (65-110); Potassium 3.7 mmol/L (3.4-5.0); Sodium 136 mmol/L (137-145)
[2024-06-17 07:45] LABS: Glucose Point of Care 127 mg/dl (65-105)
[2024-06-17] MEDS: INSULIN GLARGINE (*BKC) 100 UNITS/ML 20 UNITS SUB-Q (08:16)
[2024-06-17] MEDS: AMOXICILLIN/CLAVULANATE K 875-125 MG TAB 1 TABLET PO (08:16)
[2024-06-17] MEDS: ATORVASTATIN 40 MG TABLET PO (08:17)
[2024-06-17] MEDS: CLOPIDOGREL BISULFATE 75 MG TABLET PO (08:17)
[2024-06-17] MEDS: MECLIZINE HCL 12.5 MG TABLET PO ×2 (08:17→13:20)
[2024-06-17] MEDS: amLODIPine BESYLATE 5 MG TABLET PO (08:17)
[2024-06-17] MEDS: EMPAGLIFLOZIN 25 MG TABLET BY MOUTH (08:17)
[2024-06-17] MEDS: ASPIRIN 81 MG CHEWABLE TABLET PO (08:17)
[2024-06-17] MEDS: AZITHROMYCIN 250 MG TABLET 500 MG PO (08:17)
--- NOTE | 2024-06-17 09:51 | PM.DS ---
DS: Admitting Diagnosis Discharge Date 06/17/24 Admitting Diagnosis CVA Pneumonia Elevated blood pressure reading Type 2 diabetes mellitus Hyperlipidemia DS: Discharge Diagnosis Discharge Diagnosis (1) Cerebrovascular accident: Code(s): I63.9 - Cerebral infarction, unspecified Status: Acute (2) Pneumonia: Code(s): J18.9 - Pneumonia, unspecified organism Status: Acute (3) Elevated blood pressure reading: Code(s): R03.0 - Elevated blood-pressure reading, without diagnosis of hypertension Status: Acute (4) Type 2 diabetes mellitus: Code(s): E11.9 - Type 2 diabetes mellitus without complications Status: Chronic (5) Hyperlipidemia: Code(s): E78.5 - Hyperlipidemia, unspecified Status: Chronic DS: Summary Hospital Course Reason for hospitalization: CVA Pneumonia Elevated blood pressure reading Type 2 diabetes mellitus Hyperlipidemia Hospital Course: This is an 78-year-old male who presented to the hospital on 06/13/2024 for evaluation after a ground level fall due to weakness and dizziness. Workup in the hospital includes a head CT which showed hypodensity in the left cerebellar hemisphere most likely an acute infarct, hypodensity in the anterior limb of the left internal capsule which may be acute or chronic infarct, brain atrophy with deep white matter ischemic changes. Cervical spine CT was negative for fracture, severe cervical spondylosis. Chest x-ray showing bibasilar basal pneumonia. Head/neck CTA showed infarct in left cerebellum likely acute or subacute, old infarcts in the bilateral basal ganglia and stefany, extensive nonspecific cerebral white matter disease representing chronic small-vessel ischemic disease, no aneurysm or significant intracranial arterial stenosis, 26% stenosis of the proximal right internal carotid artery, 7% stenosis of the proximal left internal carotid artery. Initial labs shown a white blood cell count of 12.3, bicarb 21, hemoglobin A1c 10.9, lactic acid 2.2> 2.1, total bili 1.9, troponin negative, lipid panel negative, TSH 1.59. UA was obtained and showed a urine specific gravity of 1.036, 3+ urine glucose, 1+ urine ketones, otherwise negative. Mycoplasma was obtained and pending. Blood cultures were also obtained and are pending. EKG showing AFib with a rate of 87, QTC 444. Patient was given 300 mg of Plavix,, aspirin 325 mg, Rocephin, azithromycin, and Zofran while in the ED. Neurology was consulted. Patient had an MRI of the brain on 06/14/2024 which showed acute large infarct in the left cerebellar hemisphere involving the PICA territory, infarct in the left side of medulla oblongata. He also had a modified barium swallow which showed laryngeal penetration. He was started on a regular diet with slightly thickened liquid which he is tolerating well. His work with PT and OT over the course of the last few days and has reported dizziness with movement. He was started on meclizine which is helped the dizziness. Patient is stable for discharge at this time. [facility] for continued rehab needs. He will get a follow-up with Neurology within the next month. Final diagnosis: Acute CVA, pneumonia, uncontrolled hypertension Status at Discharge Cognitive/behavioral status at discharge: Alert oriented x4 Functional status at discharge: uses cane/walker Overall status at discharge: patient is progressing back to baseline Time Spent with Patient Time attestation: Total time spent providing and/or coordinating discharge services: Time spent: Greater than 30 minutes Exam Narrative: General: In no acute distress Eyes: EOMI, PERRLA, sclera clear, blurred vision in left eye Cardiac: Normal S1 and S2. No murmur, gallops or friction rubs, peripheral pulses intact. Respiratory: Lungs clear to auscultation, no adventitious lung sounds, currently on room air Gastrointestinal: soft, non-distended, non-tender, nor
[2024-06-17 11:32] LABS: Glucose Point of Care 225 mg/dl (65-105)
[2024-06-17] MEDS: BACLOFEN 5 MG TABLET PO (13:21)
[2024-06-17 17:49] LABS: Pneumococcal Antigen Urine NOT DETECTED
[2024-06-17 22:34] LABS: Legionella pneumophila Ag Ur NOT DETECTED
[2024-06-19 10:09] LABS: Methylmalonic Acid 288 nmol/L (85-423)
[2024-06-20 13:09] LABS: Homocysteine 15.7 umol/L (<11.4)
[2024-06-20 18:23] LABS: Mycoplasma IgM Antibody Titer 78 U/mL
== END 2024-06-17 14:05 | DRG 64 ==
LOC: ANHED 14:19 → ANH3MEDSUR 16:12
PROVIDERS: Physician Assistant; Psychiatry & Neurology Neurology; Admitting Provider General Practice; Emergency Provider Emergency Medicine; PCP Internal Medicine; Visit Provider Nurse Practitioner Acute Care
DX: I63.9 Cerebral infarction, unspecified (principal); J18.9 Pneumonia, unspecified organism; E11.9 Type 2 diabetes mellitus without complications; E78.5 Hyperlipidemia, unspecified; R03.0 Elevated blood-pressure reading, without diagnosis of hypertension; R42 Dizziness and giddiness
CPT/HCPCS: 36415; 70450; 70496; 70498; 70553; 71045; 72125; 80048; 80053; 80061; 81001; 82306; 82607; 82746; 82948; 83036; 83090; 83605; 83735; 83921; 84443; 84484; 85025; 85027; 85610; 85730; 86140; 86738; 87040; 87449; 87637; 87899; 92526; 92611; 93005; 96365; 96367; 96375; 97110; 97112; 97161; 97162; 97165; 97530; 97535; 99285; A9270; A9577; G0378; J0456; J0696; J1815; J2405; Q9967

== ENCOUNTER 2024-06-22 16:27 | Emergency (ER) | payer MEDICARE, SELFPAY ==
[2024-06-22] VITALS (13 sets, daily range): BP systolic 140–147; BP diastolic 78–80; PULSE 98–108; RESP 9–29; TEMP 36.8; O2SAT 98–100
--- NOTE | ~2024-06-22 | XR_ITS ---
EXAMINATION: XR chest 1V DATE: 06/22/2024 17:20 INDICATION: Cerebrovascular accident. TECHNIQUE: A single frontal view of the chest was obtained. COMPARISON: Chest single view 06/13/2024 FINDINGS: There is mild atelectasis at left lung base. No pleural effusion or pneumothorax. The heart size is normal. There is an old healed fracture of left clavicle. IMPRESSION: 1. Mild atelectasis at left lung base. Reviewed, dictated and finalized at location A.
--- NOTE | ~2024-06-22 | CT_ITS ---
EXAMINATION: CT brain wo con DATE: 06/22/2024 17:18 INDICATION: Upper extremity weakness TECHNIQUE: Computed tomography (CT) of the head was performed without intravenous contrast. Sagittal and coronal reconstructions were performed. The mA was adjusted according to patient size. Iterative reconstruction technique was employed. The dose-length product was 681.00 mGy-cm. COMPARISON: head CT dated 06/13/2024 and brain MR dated 06/14/2024 FINDINGS: Small region of decreased attenuation in the left cerebellar hemisphere and at the left side of the m edulla consistent with subacute infarct with restricted diffusion evident in this region on the recen t prior MRI. No change in small old lacunar infarcts at the bilateral basal ganglia and in the left s nab of the more cephalad stefany. There is moderate scattered white matter hypoattenuation consistent wi th chronic small vessel ischemic disease. No acute intracranial hemorrhage or abnormal extra axial fl uid collection. Symmetric prominence of the sulci and ventricles consistent with moderate age-appropr iate diffuse cerebral volume loss. No mass/mass effect. Small left mastoid effusion. The orbitsand pa ranasal sinuses are normal. IMPRESSION: 1. Subacute infarct in the left cerebellum and left lingula. 2. Small old lacunar infarcts at the bilateral basal ganglia and left stefany. 3. Age-related changes including moderate diffuse volume loss and moderate scattered white matter hyp oattenuation consistent with chronic small vessel ischemic disease. Reviewed, dictated and finalized at location A. IMPRESSION: 1. Subacute infarct in the left cerebellum and left lingula. 2. Small old lacunar infarcts at the bilateral basal ganglia and left stefany. 3. Age-related changes including moderate diffuse volume loss and moderate scat tered white matter hypoattenuation consistent with chronic small vessel ischemi c disease.
--- NOTE | 2024-06-22 16:35 | ECG_ITS ---
Test Date: 2024-06-22 16:37:27 Measurements Intervals Falls Rate: 99 P: 64 NJ: 217 QRS: 3 QRSD: 90 T: 3 QT: 327 QTc: 421 Interpretive Statements SINUS RHYTHM WITH FIRST DEGREE AV BLOCK POSSIBLE ANTERIOR MYOCARDIAL INFARCTION , PROBABLY OLD [30 ms Q WAVE IN V3/V4, OR R < 0.2 mV IN V4] PROBABLE INFERIOR MYOCARDIAL INFARCTION , PROBABLY OLD [35 ms Q WAVE IN II/aVF] ABNORMAL ECG Compared to ECG 06/13/2024 23:27:37 ALTERED PRECORDIAL LEAD POSITION, NO OTHER SIGNIFICANT CHANGE Electronically Signed On 06-23-2024 07:27:00 CDT by Enrrique Mendoza M.D.
--- NOTE | 2024-06-22 16:37 | ED.GENADULT ---
HPI - General Adult General Chief complaint: Unspecified Stated complaint: R arm weakness Time Seen by Provider: 06/22/24 16:37 Source: patient History of Present Illness HPI narrative: 78 years old white male came to the ED by ambulance from rehab. Patient is asymptomatic. Patient had history CVA June 13, with diagnosis of acute CVA left cerebral hemisphere, patient currently doing rehabilitation. After 2 hours rehabilitation patient was exhausted tired later have a large meal subsequently vomited a little bed. According to the his patient today looks much better than yesterday, and she did not notice anything different on him today except tiredness after 2 hours of rehab. Patient is awake, alert disoriented to his age only. Patient currently on aspirin and Plavix Related Data Home Medications Medication Instructions Recorded Confirmed dapagliflozin propanediol 10 mg 10 mg PO DAILY 06/13/24 06/17/24 tablet (Farxiga) insulin glargine U-300 conc 300 20 unit subcut QAM 06/13/24 06/17/24 unit/mL (1.5 mL) subcutaneous pen (Toujeo SoloStar U-300 Insulin) linagliptin 2.5 mg-metformin 1,000 1 tablet PO DIRECTED 06/13/24 06/17/24 mg tablet (Jentadueto) Allergies Allergy/AdvReac Type Severity Reaction Status Date / Time No Known Allergies Allergy Verified 06/17/24 15:06 Review of Systems Review of Systems: All systems reviewed & are unremarkable except as noted in HPI and below PMFSH Past Medical History Medical History Acute ischemic VBA brainstem stroke Chronic hiccups Dementia Gastroesophageal reflux disease Hyperlipidemia Type 2 diabetes mellitus Social History Social History Social History: Surrogate medical decision maker: Mindy Abbott, spouse. Code status: Full code. Smoking status: Never smoker Alcohol intake: never Substance use: never Do You Feel Safe in your Home?: Yes Lack of Transportation: No Lack of Food: Never True Current Housing: I Have Housing Concerned About Future Housing: No Difficulty Paying Gas/Electric Bills: No Difficulty Paying for Meds: No Currently Unemployed: No Education: Master's Degree or Higher Difficulty w/ Childcare or Family Care: No Living arrangements: with family Additional living arrangements comments: Lives with in [place]. 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 Gender identity (if verbalized by the patient): Male Sexual Orientation (if Verbalized by the Patient): Straight or Heterosexual Spiritual care concerns: No Exam Narrative: General appearance: Well-developed, well-nourished Skin: Normal color Head: Normocephalic, nontraumatic Eyes: Clear conjunctiva ENT: Oropharynx normal, ears normal, nose normal Neck: Supple, nontender Chest and respiratory: Airway patent, no respiratory distress, no accessory muscle use Heart: Regular rate/rhythm Abdomen: Soft, nontender, no organomegaly, quiet bowel sounds Vascular: Normal peripheral pulses, normal capillary refill. Musculoskeletal: Normal range of motion, nontender back Neurologic: Alert and oriented ?3, Course Vital Signs Vital signs: Vital Signs Temperature 36.8 C 06/22/24 16:30 Pulse Rate 98 06/22/24 16:30 Respiratory Rate 18 06/22/24 16:30 Blood Pressure 140/80 06/22/24 16:30 Pulse Oximetry 98 06/22/24 16:30 Oxygen Delivery Room Air 06/22/24 16:30 Temperature 36.8 C 06/22/24 16:30 Pulse Rate 107 H 06/22/24 18:15 Respiratory Rate 17 06/22/24 18:15 Blood Pressure
[2024-06-22 17:43] LABS: Basophils Absolute Auto 0.1 K/mm3 (0.0-0.1); Basophils Percent Auto 0.6 % (0.2-1.2); Eosinophils Absolute Auto 0.1 K/mm3 (0-0.3); Eosinophils Percent Auto 1.5 % (0-4.4); Hemoglobin 15.2 g/dL (14.0-18.0); Immature Granulocyte Absolute 0.04 K/mm3 (0.00-0.031); Immature Granulocyte Percent A 0.5 % (0-0.5); Lymphocytes Absolute Auto 1.59 K/mm3 (0.9-3.2); Lymphocytes Percent Auto 19.9 % (18.3-44.2); Mean Corpuscular Volume 93.9 fl (80-100); Mean Platelet Volume 10.5 fl (7.4-10.4); Monocytes Absolute Auto 0.8 K/mm3 (0.1-0.6); Monocytes Percent Auto 9.7 % (2.6-8.5); Neutrophils Absolute Auto 5.4 K/mm3 (1.3-6.7); Neutrophils Percent Auto 67.8 % (45.5-73.1); Platelet Count Result 274 k/mm3 (150-375)
[2024-06-22 17:56] LABS: Alanine Aminotransferase 17 U/L (6-50); Albumin Level 4.1 g/dL (3.5-5.1); Albumin Level 4.3 g/dL (3.5-5.1); Alkaline Phosphatase 86 U/L (38-126); Alkaline Phosphatase 88 U/L (38-126); Anion Gap 12 mmol/L (4-12); Anion Gap 13 mmol/L (4-12); Aspartate Amino Transferase 24 U/L (17-59); Bilirubin,Total 1.6 mg/dL (0.2-1.3); Blood Urea Nitrogen 24 mg/dL (9-20); Calcium 8.9 mg/dL (8.4-10.2); Carbon Dioxide 27 mmol/L (22-30); Carbon Dioxide 28 mmol/L (22-30); Chloride 90 mmol/L (98-107); Chloride 91 mmol/L (98-107); Estimated CRCL calculation 61 ml/min; Estimated CRCL calculation 68 ml/min; Estimated Glomerular Filt Rate > 60; Glucose 180 mg/dL (65-110); Potassium 4.9 mmol/L (3.4-5.0); Sodium 130 mmol/L (137-145); Sodium 131 mmol/L (137-145)
[2024-06-22 18:01] LABS: INR 0.9; Partial Thromboplastin Time 25.2 Seconds (22.3-36.8); Prothrombin Time 12.7 Seconds (11.1-14.7)
[2024-06-22 18:02] LABS: Partial Thromboplastin Time 25.7 Seconds (22.3-36.8)
[2024-06-22 18:06] LABS: Troponin I < 0.012 ng/mL (0.000-0.034)
== END 2024-06-22 19:49 ==
PROVIDERS: Emergency Provider Emergency Medicine; PCP Internal Medicine
DX: I69.398 Other sequelae of cerebral infarction (principal); R53.1 Weakness; F03.90 Unspecified dementia, unspecified severity, without behavioral disturbance, psychotic disturbance, mood disturbance, and anxiety; E78.5 Hyperlipidemia, unspecified; E11.9 Type 2 diabetes mellitus without complications; K21.9 Gastro-esophageal reflux disease without esophagitis; Z79.4 Long term (current) use of insulin; Z79.02 Long term (current) use of antithrombotics/antiplatelets; Z79.84 Long term (current) use of oral hypoglycemic drugs; Z79.82 Long term (current) use of aspirin; Z79.899 Other long term (current) drug therapy; I44.0 Atrioventricular block, first degree; R94.31 Abnormal electrocardiogram [ECG] [EKG]
CPT/HCPCS: 36415; 70450; 71045; 80053; 84484; 85025; 85610; 85730; 93005; 99284